=== PATIENT | male | born 1985 | race Caucasian/White ===

== ENCOUNTER 2018-06-06 09:08 | Emergency (ER) | payer BC ==
[2018-06-06 09:13] VITALS: BP 144/82
--- NOTE | 2018-06-06 09:24 | EDPHY ---
General Time Seen by Provider: 06/06/18 09:15 Narrative: CHIEF COMPLAINT: Sore throat HISTORY OF PRESENT ILLNESS: Patient presents by private vehicle with complaints of sore throat times 2-3 days. Gradual onset. Constant duration. Described as symmetrically sore. [id number]. Able to eat and drink. No fever. No headache. Some mild malaise but "not as bad as the flu." No chest pain, cough, shortness of breath or abdominal pain. No urinary complaints. No rash. No neck pain or stiffness. His was diagnosed with strep several days ago and he is concerned he has the same. No other associated complaints or modifying factors. REVIEW OF SYSTEMS: 10 systems were reviewed and negative with the exception of the elements mentioned in the history of present illness. PCP: None SPECIALISTS: None PAST MEDICAL HISTORY: Denies PAST SURGICAL HISTORY: Denies SOCIAL HISTORY: Nonsmoker. Lives independently with his spouse. Works as an office setting FAMILY HISTORY: Noncontributory EXAMINATION: Vitals: Triage VS reviewed General Appearance: Alert, no distress Head: normocephalic, atraumatic Eyes: Pupils equal and round, no conjunctival pallor or injection ENT, Mouth: Mucous membranes moist. No trismus. Uvula is midline. There is symmetric tonsillar enlargement with moderate erythema and mild exudate symmetrically. No trismus. No muffled voice or hoarseness. No abnormality of the floor of the mouth. I do not appreciate any evidence of peritonsillar abscess. Neck: Normal inspection, supple, no meningismus or rigidity. Nontender. Respiratory: Lungs are clear with normal work of breathing. Cardiovascular: Regular rate with good signs of perfusion. Neurological: A&O, nonfocal, normal gait Skin: Warm and dry, no rash DIFFERENTIAL DIAGNOSES: Including but not limited to strep pharyngitis, viral pharyngitis, strep tonsillitis, prior pharyngeal abscess, peritonsillar abscess MDM: 9:15 a.m. Acute pharyngitis with suspected strep pharyngitis by history examination as well as recent spouse diagnosis. I do not appreciate any evidence of peritonsillar abscess or parapharyngeal abscess. He has a normal voice. We discussed antibiotics, so short course of steroid and symptomatic medications. We discussed strict ED precautions for unilateral pain, difficulty opening closing his mouth, hoarse or muffled voice. We discussed increase fluid intake. I have answered all his questions. He is well-appearing and discharged home stable condition. SUPERVISION: This patient was independently evaluated without direct involvement of or examination by the attending physician. CONSULTATION: None - History Smoking Status: Never smoked - Objective Vital Signs: Initial Vital Signs Temperature (C) 98.4 F 06/06/18 09:11 Heart Rate 81 06/06/18 09:11 Respiratory Rate 16 06/06/18 09:11 Blood Pressure 144/82 H 06/06/18 09:11 O2 Sat (%) 97 06/06/18 09:11 O2 Delivery Mode Room Air Allergies/Adverse Reactions: No Known Allergies Allergy (Unverified 06/06/18 09:09) Home Medications: Medication Instructions Recorded Clindamycin 450 mg PO Q8 7 Days cap 06/06/18 Dexamethasone [Decadron 4 MG (*)] 8 mg PO DAILY #4 tab 06/06/18 Lidocaine 2% Viscous 10 ml MM TID #100 ml 06/06/18 Departure - Departure Disposition: Home, Routine, Self-Care Clinical Impression: Acute pharyngitis Qualifiers: Pharyngitis/tonsillitis etiology: streptococcus Qualified Code(s): J02.0 - Streptococcal pharyngitis Acute tonsillitis Qualifiers: Pharyngitis/tonsillitis etiology: streptococcus Streptococcal tonsillitis recurrence: non-recurrent Qualified Code(s): J03.00 - Acute streptococcal tonsillitis, unspecified Condition: Good Instructions: Strep Throat (DC), Tonsillitis (ED) Additional Instructions: 1. Salt water rinses frequently throughout the day 2. Prescription antibiotics to completion 3. Prescription viscous lidocaine as needed for symptomatic control 4. Ibuprofen [id number] 600 mg every 6-8 hours 5. Prescription Decadron steroid to completion 6. Increase fluid intake 7. Strict ED precautions for any unilateral pain, difficulty opening or closing the mouth, hoarse or muffled voice, fever, neck pain or stiffness Referrals: Physician,Emergency Dept, [Medical Doctor] - As per Instructions Nini Rutledge [place] [place] - As per Instructions Prescriptions: Clindamycin 450 mg PO Q8 7 Days cap Dexamethasone [Decadron 4 MG (*)] 8 mg PO DAILY #4 tab Lidocaine 2% Viscous 10 ml MM TID #100 ml
== END 2018-06-06 09:36 | disposition home or self-care (01) ==
DX: J02.0 Streptococcal pharyngitis (principal); J03.00 Acute streptococcal tonsillitis, unspecified